=== PATIENT | male | born 1995 | race African-American/Black ===

== ENCOUNTER 2018-01-29 18:26 | Emergency (ER) | payer OTHER ==
[~2018-01-29] VITALS: Ht 172.7 cm; Wt 54.4 kg
--- OUTSIDE RECORDS SUMMARY | 2018-01-29 18:28 | XMS REPORT ---
Author Author [facility] Address Unknown Phone Unavailable Care Team Providers Care Rn Clinical Name Role Phone Unavailable Unavailable Payers Payer Name Policy Type Policy Number Effective Date Expiration Date Problems This patient has no known problems. Allergies, Adverse Reactions, Alerts Allergy Name Allergy Type Status Severity Reaction(s) Onset Date Inactive Date Treating Clinician Comments No Known Allergies DA Active U 2018-01-29 00:00:00 No Known Allergies DA Active U 2017-10-07 00:00:00 Medications This patient has no known medications.
[2018-01-29] MEDS ORDERED: CYCLOBENZAPRINE HCL 10 MG TAB PO ONE (19:00)
[2018-01-29] MEDS ORDERED: KETOROLAC TROMETHAMINE 60 MG/2 ML VIAL IM ONE (19:00)
[2018-01-29] MEDS ORDERED: DEXAMETHASONE SOD PHOS 10 MG/1 ML VIAL INJ ONE (19:00)
[2018-01-29] MEDS ORDERED: HYDROCODONE/APAP 10MG-325MG TAB PO ONE (19:00)
[2018-01-29 22:15] VITALS: BP 127/84
== END 2018-01-29 20:30 | disposition home or self-care (01) ==
LOC: ER 18:26
DX: M54.5 Low back pain (principal); S39.012A Strain of muscle, fascia and tendon of lower back, initial encounter; M41.9 Scoliosis, unspecified
CPT/HCPCS: 99283; J1100; J1885